=== PATIENT | male | born 1965 | race Caucasian/White ===

== ENCOUNTER 2024-07-17 09:49 | Inpatient (IN) | payer OTHER ==
[2024-07-17 10:42] LABS: BASO % 0.3 % (0-2.0); EOS % 9.4 % (0-4.5); HEMATOCRIT 17.2 % (35.4-49); LYMPH % 11.1 % (8-40); MCH 27.6 pg (25.7-33.7); MCHC 33.1 g/dl (32.0-35.9); MEAN CELL VOLUME 83.5 fl (80-96); MEAN PLT VOLUME 6.9 fl (7.5-11.1); MONO % 9.7 % (3.8-10.2); NEUT % 69.5 % (42.8-82.8); PLATELET COUNT 379 10^3/uL (134-434); RBC 2.06 M/mm3 (4.00-5.60); RDW 16.2 % (11.9-15.9); WHITE BLOOD COUNT 7.3 K/mm3 (4.0-10.0)
[2024-07-17 10:44] LABS: INR 1.37 (0.83-1.09); PROTHROMBIN TIME (PATIENT) 15.3 SEC (9.7-13.0)
[2024-07-17 10:46] LABS: HEMOGLOBIN 5.7 GM/dL (11.7-16.9)
[2024-07-17 10:47] LABS: ACTIVATED PTT 30.1 SECONDS (25.2-36.5)
[2024-07-17 10:55] LABS: POTASSIUM 3.9 mmol/L (3.5-5.1)
[2024-07-17 10:57] LABS: CALCIUM 7.4 mg/dL (8.5-10.1)
[2024-07-17 10:58] LABS: ALBUMIN 2.1 g/dl (3.4-5.0); BLOOD UREA NITROGEN 26.1 mg/dL (7-18)
[2024-07-17 11:01] LABS: CREATININE 1.7 mg/dL (0.55-1.3)
[2024-07-17 11:02] LABS: BILIRUBIN,TOTAL 0.4 mg/dL (0.2-1)
[2024-07-17 11:03] LABS: TOT PROT 5.8 g/dl (6.4-8.2)
[2024-07-17 11:23] LABS: MAGNESIUM 1.6 mg/dL (1.8-2.4)
[2024-07-17 11:31] LABS: N-TERMINAL BNP 2960.8 pg/ml (5-125)
[2024-07-17 16:46] LABS: EPI CELLS 5 /uL (0-25.1); HYALINE CASTS 0 /uL (0-3.1); PH,URINE 5.5 (5.0-8.0); URINE APPEARANCE CLEAR; URINE BACTERIA 24 /uL (0-1359); URINE BILIRUBIN NEGATIVE (NEGATIVE); URINE COLOR YELLOW; URINE GLUCOSE (UA) NEGATIVE (NEGATIVE); URINE KETONE NEGATIVE (NEGATIVE); URINE LEUK ESTERASE NEGATIVE (NEGATIVE); URINE NITRITE NEGATIVE (NEGATIVE); URINE PROTEIN 1+ (NEGATIVE); URINE UROBILINOGEN 0.2 mg/dL (0.2-1.0); URINE WBC 26 /uL (0-25.8)
[2024-07-17] MEDS ORDERED: MAGNESIUM 1GM/D5W - 1 GM/100 ML IVPB IVPB ONE (20:57)
[2024-07-17] MEDS: MAGNESIUM SULF 50% (8.12 MEQ/2 ML-1 GM VIAL) IVPB ONE (21:10)
[2024-07-17] MEDS ORDERED: DIVALPROEX SODIUM 500 MG TABLET E.C. PO SCH (22:00)
[2024-07-17] MEDS ORDERED: DIVALPROEX SODIUM 500 MG TABLET E.C. ONE (22:12)
[2024-07-17] MEDS ORDERED: QUEtiapine FUMARATE 100 MG TABLET (FP) ONE (22:12)
[2024-07-17] MEDS: QUEtiapine FUMARATE 100 MG TABLET (FP) PO SCH (22:14)
[2024-07-17] MEDS: DIVALPROEX SODIUM 500 MG TABLET E.C. PO SCH (22:14)
[2024-07-18 02:05] VITALS: BMI 30.3
[2024-07-18 07:58] LABS: BASO % 0.4 % (0-2.0); LYMPH % 15.5 % (8-40); MCH 29.2 pg (25.7-33.7); MCHC 34.5 g/dl (32.0-35.9); MEAN CELL VOLUME 84.5 fl (80-96); MEAN PLT VOLUME 7.2 fl (7.5-11.1); MONO % 10.3 % (3.8-10.2); NEUT % 59.8 % (42.8-82.8); PLATELET COUNT 423 10^3/uL (134-434); RBC 2.25 M/mm3 (4.00-5.60); RDW 15.6 % (11.9-15.9); WHITE BLOOD COUNT 6.2 K/mm3 (4.0-10.0)
[2024-07-18 08:01] LABS: HEMOGLOBIN 6.6 GM/dL (11.7-16.9)
[2024-07-18 08:09] LABS: POTASSIUM 4.1 mmol/L (3.5-5.1)
[2024-07-18 08:14] LABS: CALCIUM 8.1 mg/dL (8.5-10.1)
[2024-07-18 08:15] LABS: ALBUMIN 2.2 g/dl (3.4-5.0); BLOOD UREA NITROGEN 16.5 mg/dL (7-18)
[2024-07-18 08:18] LABS: BILIRUBIN,TOTAL 0.6 mg/dL (0.2-1); CREATININE 0.9 mg/dL (0.55-1.3)
[2024-07-18 08:19] LABS: TOT PROT 6.1 g/dl (6.4-8.2)
[2024-07-18] MEDS: PANTOPRAZOLE SODIUM 40 MG VIAL IVPUSH SCH (10:05)
[2024-07-18] MEDS: GABAPENTIN 100 MG CAPSULE PO SCH (10:05)
[2024-07-18] MEDS: FOLIC ACID 1 MG TABLET (FP) PO SCH (10:06)
[2024-07-18] MEDS: QUEtiapine FUMARATE 25 MG TABLET PO SCH (10:06)
[2024-07-18] MEDS: DULoxetine HCL 30 MG CAPSULE.DR PO SCH (10:06)
[2024-07-18] MEDS: methaDONE HCL 10 MG TABLET PO ONE (11:39)
[2024-07-18] MEDS ORDERED: GABAPENTIN 100 MG CAPSULE PO SCH (14:00)
[2024-07-19 01:38] LABS: URINE BARBITURATES NEGATIVE (NEGATIVE)
[2024-07-19 01:39] LABS: OPIATES, URI NEGATIVE (NEGATIVE); PHENCYCLIDINE,URINE NEGATIVE (NEGATIVE); URINE BENZODIAZEPINES NEGATIVE (NEGATIVE)
[2024-07-19 01:59] LABS: COCAINE, UR NEGATIVE (NEGATIVE); METHADONE, UR POSITIVE (NEGATIVE); URINE AMPHETAMINES NEGATIVE (NEGATIVE)
[2024-07-19] MEDS: methaDONE HCL 10 MG TABLET PO SCH (05:21)
[2024-07-19 07:45] LABS: BASO % 0.5 % (0-2.0); HEMATOCRIT 23.5 % (35.4-49); HEMOGLOBIN 7.9 GM/dL (11.7-16.9); LYMPH % 19.3 % (8-40); MCH 28.3 pg (25.7-33.7); MCHC 33.7 g/dl (32.0-35.9); MONO % 10.6 % (3.8-10.2); NEUT % 53.6 % (42.8-82.8); PLATELET COUNT 475 10^3/uL (134-434); RDW 15.6 % (11.9-15.9); WHITE BLOOD COUNT 6.1 K/mm3 (4.0-10.0)
[2024-07-19 08:00] LABS: POTASSIUM 4.3 mmol/L (3.5-5.1)
[2024-07-19 08:07] LABS: CALCIUM 8.4 mg/dL (8.5-10.1)
[2024-07-19 08:08] LABS: ALBUMIN 2.2 g/dl (3.4-5.0); BLOOD UREA NITROGEN 6.6 mg/dL (7-18)
[2024-07-19 08:11] LABS: CREATININE 0.5 mg/dL (0.55-1.3)
[2024-07-19 08:13] LABS: BILIRUBIN,TOTAL 1.9 mg/dL (0.2-1); TOT PROT 5.9 g/dl (6.4-8.2)
[2024-07-19 09:49] LABS: HIV INTERPRETATION NEGATIVE (NEGATIVE)
[2024-07-19] MEDS: FUROSEMIDE 40 MG/4 ML INJECTABLE VIAL IVPUSH SCH (13:12)
[2024-07-20] MEDS: IRON SUCROSE INJECTION 200 MG in SODIUM CHLORIDE 100 ML IVPB ONE (10:03)
[2024-07-20 10:31] LABS: BASO % 0.1 % (0-2.0); EOS % 18.1 % (0-4.5); HEMATOCRIT 26.8 % (35.4-49); HEMOGLOBIN 9.2 GM/dL (11.7-16.9); LYMPH % 18.9 % (8-40); MCH 28.9 pg (25.7-33.7); MCHC 34.4 g/dl (32.0-35.9); MEAN PLT VOLUME 6.8 fl (7.5-11.1); MONO % 12.2 % (3.8-10.2); NEUT % 50.7 % (42.8-82.8); PLATELET COUNT 531 10^3/uL (134-434); RBC 3.19 M/mm3 (4.00-5.60); RDW 15.4 % (11.9-15.9)
[2024-07-20 10:39] LABS: POTASSIUM 4.4 mmol/L (3.5-5.1)
[2024-07-20 10:41] LABS: ALBUMIN 2.3 g/dl (3.4-5.0); BLOOD UREA NITROGEN 4.9 mg/dL (7-18); CALCIUM 8.5 mg/dL (8.5-10.1)
[2024-07-20 10:45] LABS: CREATININE 0.5 mg/dL (0.55-1.3)
[2024-07-20 10:46] LABS: TOT PROT 6.1 g/dl (6.4-8.2)
[2024-07-20 10:47] LABS: BILIRUBIN,TOTAL 1.1 mg/dL (0.2-1)
[2024-07-21] MEDS: ACETAMINOPHEN 325 MG TABLET (FP) PO ONE (03:26)
[2024-07-21 08:25] LABS: BASO % 0.3 % (0-2.0); EOS % 8.2 % (0-4.5); HEMATOCRIT 28.4 % (35.4-49); HEMOGLOBIN 9.6 GM/dL (11.7-16.9); LYMPH % 20.9 % (8-40); MCH 28.3 pg (25.7-33.7); MCHC 33.8 g/dl (32.0-35.9); MEAN CELL VOLUME 83.9 fl (80-96); MEAN PLT VOLUME 6.6 fl (7.5-11.1); MONO % 17.8 % (3.8-10.2); NEUT % 52.8 % (42.8-82.8); PLATELET COUNT 541 10^3/uL (134-434); RBC 3.38 M/mm3 (4.00-5.60); RDW 16.2 % (11.9-15.9); WHITE BLOOD COUNT 5.4 K/mm3 (4.0-10.0)
[2024-07-21 08:39] LABS: POTASSIUM 4.2 mmol/L (3.5-5.1)
[2024-07-21 08:49] LABS: ALBUMIN 2.3 g/dl (3.4-5.0); BLOOD UREA NITROGEN 4.2 mg/dL (7-18); CALCIUM 8.3 mg/dL (8.5-10.1)
[2024-07-21 08:52] LABS: CREATININE 0.5 mg/dL (0.55-1.3)
[2024-07-21 08:53] LABS: BILIRUBIN,TOTAL 0.7 mg/dL (0.2-1)
[2024-07-22 04:44] VITALS: RESP 18
[2024-07-22 14:44] VITALS: PULSE 114
[2024-07-22 18:14] VITALS: BP 151/99; TEMP 98.4
[2024-07-22] MEDS: ACETAMINOPHEN 325 MG TABLET (FP) PO PRN (18:15)
== END 2024-07-23 15:22 | DRG 663 ==
LOC: JER 09:49 → JERBED 12:34 → J4W 07-18 03:20
PROVIDERS: ADMIT Internal Medicine; ATTEND Internal Medicine
PROC: 30233N1 Transfusion of Nonautologous Red Blood Cells into Peripheral Vein, Percutaneous Approach (ICD-10-PCS; principal; 2024-07-17)
DX: D64.9 Anemia, unspecified (principal); L03.115 Cellulitis of right lower limb; L03.116 Cellulitis of left lower limb; N17.9 Acute kidney failure, unspecified; E87.1 Hypo-osmolality and hyponatremia; E83.42 Hypomagnesemia; E87.70 Fluid overload, unspecified; F31.9 Bipolar disorder, unspecified; F19.90 Other psychoactive substance use, unspecified, uncomplicated; R50.9 Fever, unspecified; I11.0 Hypertensive heart disease with heart failure; I50.83 High output heart failure; R19.7 Diarrhea, unspecified; I87.2 Venous insufficiency (chronic) (peripheral); R59.0 Localized enlarged lymph nodes; J98.11 Atelectasis; I31.39 Other pericardial effusion (noninflammatory)
CPT/HCPCS: 0241U-QW; 36415; 36430; 71045-TC-FY; 71250-TC; 74176-TC; 76700-TC; 76775-TC; 80053; 80061; 80307; 81003; 82272; 82436; 82728; 82962; 83036; 83540; 83550; 83605; 83615; 83735; 83880; 83930; 83935; 84133; 84300; 84443; 84466; 84484; 85025; 85045; 85610; 85730; 86803; 86850; 86900; 86901; 86922; 87040; 87081; 87205; 87209; 87389; 87799; 93005; 93010; 93306-TC; 97116-GP; 97161-GP; 99285-25; J1756; P9038; P9058